=== PATIENT | female | born 1985 | race Caucasian/White ===

== ENCOUNTER 2019-10-25 15:36 | Inpatient (IN) | payer MEDICAID ==
[~2019-10-25] VITALS: Ht 157.5 cm; Wt 58.5 kg
[2019-10-25 16:17] VITALS: BP 137/82
[2019-10-25] MEDS ORDERED: LORazepam 2 MG TABLET PO PRN (16:45)
[2019-10-25] MEDS ORDERED: CYANOCOBALAMIN 1,000 MCG/ML VIAL IM ONE (16:45)
[2019-10-25] MEDS ORDERED: HydrOXYzine PAMOATE 50 MG CAPSULE PO PRN (16:45)
[2019-10-25] MEDS ORDERED: GuaiFENesin/D-METHORPHAN [SUGAR-FREE] 200-20MG/10 ML SYRUP UDCUP PO PRN (16:45)
[2019-10-25] MEDS ORDERED: MAGNESIUM HYDROXIDE SUSPENSION 30 ML UDCUP PO PRN (16:45)
[2019-10-25] MEDS ORDERED: LOPERAMIDE HCL 2 MG CAPSULE PO PRN (16:45)
[2019-10-25] MEDS ORDERED: OLANZapine 5 MG RAPDIS TABLET PO PRN (16:45)
[2019-10-25] MEDS ORDERED: TUBERCULIN, PURIFIED PROTEIN DERIVATIVE 5 TU/0.1 ML SYRINGE ID ONE (16:45)
[2019-10-25] MEDS ORDERED: ACETAMINOPHEN 325 MG TABLET PO PRN (16:45)
[2019-10-25] MEDS ORDERED: MAG HYDROX/AL HYDROX/SIMETH ES 30 ML SUSPENSION UDCUP PO PRN (16:45)
[2019-10-25 18:15] VITALS: BP 128/84
[2019-10-25 19:15] VITALS: BP 124/78
[2019-10-25 19:31] VITALS: BP 124/84
[2019-10-25 20:15] VITALS: BP 121/72
[2019-10-25] MEDS: THIAMINE HCL 100 MG TABLET PO SCH (21:04)
[2019-10-25] MEDS: GABAPENTIN 300 MG CAPSULE PO SCH (21:13)
[2019-10-25 21:15] VITALS: BP 132/69
[2019-10-25] MEDS: ZOLPIDEM TARTRATE 10 MG TABLET PO PRN (22:03)
[2019-10-26] VITALS (8 sets, daily range): BP systolic 105–133; BP diastolic 65–87
[2019-10-26] MEDS ORDERED: LORazepam 2 MG TABLET PO PRN (07:00)
[2019-10-26 08:39] LABS: APPEARANCE,URINE CLEAR (CLEAR); BILIRUBIN,URINE NEGATIVE (NEGATIVE); GLUCOSE, URINE (UA) NEGATIVE (NEGATIVE); KETONES,URINE NEGATIVE (NEGATIVE); LEUKOCYTE ESTERASE ,URINE NEGATIVE (NEGATIVE); NITRATE,URINE NEGATIVE (NEGATIVE); OCCULT BLOOD,URINE NEGATIVE (NEGATIVE); PROTEIN,URINE NEGATIVE (NEGATIVE); UROBILINOGEN,URINE 0.2 mg/dL (<=1.0)
[2019-10-26 08:58] LABS: AMPHET/METH SCREEN,URINE POSITIVE (NEGATIVE); BARBITURATE SCREEN, URINE NEGATIVE (NEGATIVE); BENZODIAZEPINES SCREEN,URINE NEGATIVE (NEGATIVE); CANNABINOID SCREEN,URINE NEGATIVE (NEGATIVE); COCAINE SCREEN,URINE NEGATIVE (NEGATIVE); METHADONE SCREEN, URINE NEGATIVE (NEGATIVE); OPIATE SCREEN,URINE NEGATIVE (NEGATIVE)
[2019-10-26 08:59] LABS: PHENCYCLIDINE SCREEN,URINE NEGATIVE (NEGATIVE)
[2019-10-26] MEDS ORDERED: DULoxetine HCL 20 MG CAPSULE PO SCH (09:00)
[2019-10-26] MEDS: GABAPENTIN 300 MG CAPSULE PO SCH ×4 (09:29→20:42)
[2019-10-26] MEDS: NALTREXONE HCL 50 MG TABLET PO SCH (09:29)
[2019-10-26] MEDS: PredniSONE 10 MG TABLET PO SCH (09:30)
[2019-10-26] MEDS: THIAMINE HCL 100 MG TABLET PO SCH ×2 (09:30→16:27)
[2019-10-26] MEDS: LORazepam 2 MG TABLET PO SCH ×4 (09:30→20:42)
[2019-10-26] MEDS: FOLIC ACID 1 MG TABLET PO SCH (09:30)
[2019-10-26] MEDS: MULTIVITAMINS WITH MINERALS, THERAPEUTIC TABLET PO SCH (09:31)
[2019-10-26] MEDS: PROMETHAZINE HCL 25 MG TABLET PO PRN (10:59)
[2019-10-27 05:11] VITALS: BP 100/72
[2019-10-27 08:27] VITALS: BP 104/74
[2019-10-27] MEDS: SERTRALINE HCL 50 MG TABLET PO SCH (08:28)
[2019-10-27] MEDS: THIAMINE HCL 100 MG TABLET PO SCH ×2 (08:29→16:48)
[2019-10-27] MEDS: FOLIC ACID 1 MG TABLET PO SCH (08:29)
[2019-10-27] MEDS: LORazepam 2 MG TABLET PO SCH ×4 (08:29→21:28)
[2019-10-27] MEDS: PredniSONE 10 MG TABLET PO SCH (08:29)
[2019-10-27] MEDS: NALTREXONE HCL 50 MG TABLET PO SCH (08:29)
[2019-10-27] MEDS: MULTIVITAMINS WITH MINERALS, THERAPEUTIC TABLET PO SCH (08:29)
[2019-10-27] MEDS: GABAPENTIN 300 MG CAPSULE PO SCH ×4 (08:29→21:28)
[2019-10-27 08:49] LABS: BASOPHILS % (AUTO) 0.4 % (0.0-2.0); EOSINOPHILS % (AUTO) 0.9 % (1.0-6.0); HEMATOCRIT 39.5 % (36-46); HEMOGLOBIN 13.3 g/dL (12.0-16.0); LYMPHOCYTES # (AUTO) 2.5 K/uL (1.0-4.8); LYMPHOCYTES % (AUTO) 28.6 % (22.0-44.0); MEAN CORPUSCULAR HEMOGLOBIN 31.4 pg (26.0-34.0); MEAN CORPUSCULAR HGB CONC 33.6 G/dL (31.0-37.0); MEAN CORPUSCULAR VOLUME 93 fL (80-100); MONOCYTES # (AUTO) 0.9 K/uL (0.1-1.0); MONOCYTES % (AUTO) 10.2 % (2.0-9.0); NEUTROPHILS # (AUTO) 5.3 K/uL (1.8-7.7); NEUTROPHILS % (AUTO) 59.9 % (40.0-70.0); PLATELET COUNT (AUTO) 393 K/uL (150-450); RED BLOOD CELL COUNT(AUTO) 4.24 MIL/uL (4.00-5.20); RED CELL DISTRIBUTION WIDTH 12.5 % (11.5-14.5)
[2019-10-27 09:22] LABS: ALANINE AMINOTRANSFERASE 39 U/L (12-78); ALBUMIN 3.1 g/dL (3.4-5.0); ALKALINE PHOSPHATASE 66 U/L (46-116); ANION GAP 5 mmol/L (8-16); ASPARTATE AMINOTRANSFERASE 23 U/L (15-37); BILIRUBIN,TOTAL 0.3 mg/dL (0.1-1.0); CALCIUM, TOTAL 8.9 mg/dL (8.8-10.5); CARBON DIOXIDE 29 mmol/L (22-29); CHLORIDE 106 mmol/L (98-107); CHOL/HDL RATIO 2.5 (3.9-5.7); CHOLESTEROL 157 mg/dL (131-200); CREATININE 0.75 mg/dL (0.60-1.30); FREE T4 (FREE THYROXINE) 1.12 ng/dL (0.76-1.46); GLOMERULAR FILTR. RATE CALC > 60 mL/min (>60); GLUCOSE,RANDOM 93 mg/dL (70-110); HCG,QUANTITATIVE < 1 mIU/mL (0-6); HDL CHOLESTEROL 63 mg/dL (40-60); LDL CHOL (CALC.) 80 mg/dL (0-130); POTASSIUM 3.8 mmol/L (3.5-5.1); SODIUM SERUM 140 mmol/L (136-145); THYROID STIMULATING HORMONE 0.08 uIU/mL (0.36-3.74); TOTAL PROTEIN, SERUM 6.9 g/dL (6.4-8.2); TRIGLYCERIDES 72 mg/dL (15-150); UREA NITROGEN, BLOOD 8 mg/dL (7-18)
[2019-10-27 09:32] LABS: HEMOGLOBIN A1C 5.8 % (4.5-6.2)
[2019-10-27 09:59] VITALS: BP 104/74
[2019-10-27 16:00] VITALS: BP 111/62
[2019-10-27 16:09] VITALS: BP 111/62
[2019-10-28 05:18] VITALS: BP 103/72
[2019-10-28] MEDS ORDERED: LORazepam 1 MG TABLET PO PRN (07:00)
[2019-10-28 08:08] VITALS: BP 123/57
[2019-10-28] MEDS: GABAPENTIN 300 MG CAPSULE PO SCH ×2 (08:44→12:08)
[2019-10-28] MEDS: MULTIVITAMINS WITH MINERALS, THERAPEUTIC TABLET PO SCH (08:44)
[2019-10-28] MEDS: SERTRALINE HCL 50 MG TABLET PO SCH (08:44)
[2019-10-28] MEDS: THIAMINE HCL 100 MG TABLET PO SCH ×2 (08:44→16:39)
[2019-10-28] MEDS: FOLIC ACID 1 MG TABLET PO SCH (08:45)
[2019-10-28] MEDS: PredniSONE 10 MG TABLET PO SCH (08:45)
[2019-10-28] MEDS: NALTREXONE HCL 50 MG TABLET PO SCH (08:45)
[2019-10-28] MEDS: LORazepam 1 MG TABLET PO SCH ×4 (08:45→20:33)
[2019-10-28 10:39] VITALS: BP 123/57
[2019-10-28 16:20] VITALS: BP 113/80
[2019-10-28 16:21] VITALS: BP 113/80
[2019-10-28] MEDS: GABAPENTIN 400 MG CAPSULE PO SCH ×2 (16:41→20:33)
[2019-10-28] MEDS ORDERED: LOPERAMIDE HCL 2 MG CAPSULE PO PRN (16:45)
[2019-10-28] MEDS: ZOLPIDEM TARTRATE 10 MG TABLET PO PRN (20:34)
[2019-10-29 05:01] VITALS: BP 105/78
[2019-10-29] MEDS ORDERED: LORazepam 1 MG TABLET PO PRN (07:00)
[2019-10-29] MEDS: FOLIC ACID 1 MG TABLET PO SCH (08:17)
[2019-10-29] MEDS: NALTREXONE HCL 50 MG TABLET PO SCH (08:17)
[2019-10-29] MEDS: PredniSONE 10 MG TABLET PO SCH (08:17)
[2019-10-29] MEDS: GABAPENTIN 400 MG CAPSULE PO SCH ×4 (08:17→20:17)
[2019-10-29] MEDS: THIAMINE HCL 100 MG TABLET PO SCH ×2 (08:18→16:18)
[2019-10-29] MEDS: MULTIVITAMINS WITH MINERALS, THERAPEUTIC TABLET PO SCH (08:18)
[2019-10-29] MEDS ORDERED: SERTRALINE HCL 100 MG TABLET PO SCH (09:00)
[2019-10-29] MEDS ORDERED: GABA-533 PO (11:44)
[2019-10-29] MEDS ORDERED: SERT100T12 PO (11:44)
[2019-10-29] MEDS ORDERED: NALT50TA6 PO (11:44)
[2019-10-29] MEDS ORDERED: PRED5 PO (11:59)
[2019-10-29] MEDS: PROMETHAZINE HCL 25 MG TABLET PO PRN (14:21)
== END 2019-10-29 19:30 | disposition home or self-care (01) | DRG 751 ==
LOC: B3A 18:50
PROVIDERS: ADMIT Psychiatry & Neurology Psychiatry; ATTEND Psychiatry & Neurology Psychiatry
DX: F33.3 Major depressive disorder, recurrent, severe with psychotic symptoms (principal); A69.20 Lyme disease, unspecified; R45.851 Suicidal ideations; F14.90 Cocaine use, unspecified, uncomplicated; F17.210 Nicotine dependence, cigarettes, uncomplicated; M06.9 Rheumatoid arthritis, unspecified; Z56.0 Unemployment, unspecified; Z59.0 Homelessness; Z91.19 Patient's noncompliance with other medical treatment and regimen; R00.2 Palpitations
CPT/HCPCS: 83036; 84439; 84443; 86592; 87081; J3420

== ENCOUNTER 2022-05-30 14:30 | Emergency (ER) | payer MEDICAID, OTHER ==
[~2022-05-30] VITALS: Ht 157.5 cm; Wt 53.6 kg
[~2022-05-30 14:30] MED LIST: GABA-1201 PO; NALT50TA6 PO; PRED5TAB2 PO; SERT-162 PO
[2022-05-30] MEDS ORDERED: ADAL80PE2 SQ (14:44)
[2022-05-30] MEDS ORDERED: implanon ID (14:44)
[2022-05-30] MEDS ORDERED: METH2.5 PO (14:44)
[2022-05-30] MEDS ORDERED: SODIUM CHLORIDE 0.9% 1,000 ML IV ONE (15:00)
[2022-05-30] MEDS ORDERED: ONDANSETRON HCL 4 MG/2 ML VIAL IVP ONE (15:00)
[2022-05-30 15:16] LABS: BASOPHILS % (AUTO) 0.4 % (0.0-2.0); EOSINOPHILS % (AUTO) 0.1 % (1.0-6.0); HEMATOCRIT 39.6 % (36-46); HEMOGLOBIN 13.1 g/dL (12.0-16.0); LYMPHOCYTES # (AUTO) 2.2 K/uL (1.0-4.8); LYMPHOCYTES % (AUTO) 27.2 % (22.0-44.0); MEAN CORPUSCULAR HEMOGLOBIN 28.8 pg (26.0-34.0); MEAN CORPUSCULAR VOLUME 87 fL (80-100); MONOCYTES # (AUTO) 0.6 K/uL (0.1-1.0); MONOCYTES % (AUTO) 7.6 % (2.0-9.0); NEUTROPHILS # (AUTO) 5.3 K/uL (1.8-7.7); NEUTROPHILS % (AUTO) 64.7 % (40.0-70.0); PLATELET COUNT (AUTO) 332 K/uL (150-450); RED BLOOD CELL COUNT(AUTO) 4.53 MIL/uL (4.00-5.20); RED CELL DISTRIBUTION WIDTH 13.8 % (11.5-14.5)
[2022-05-30 15:25] LABS: COVID AG,FIA SOURCE NASAL SWAB
[2022-05-30 15:26] LABS: ANION GAP 10 mmol/L (8-16); CALCIUM, TOTAL 9.6 mg/dL (8.8-10.5); CARBON DIOXIDE 26 mmol/L (22-29); CHLORIDE 102 mmol/L (98-107); CREATININE 0.76 mg/dL (0.60-1.30); GLUCOSE,RANDOM 99 mg/dL (70-110); POTASSIUM 3.7 mmol/L (3.5-5.1); SODIUM SERUM 138 mmol/L (136-145); UREA NITROGEN, BLOOD 11 mg/dL (7-18)
[2022-05-30 15:28] LABS: GLOMERULAR FILTR. RATE CALC > 60 mL/min (>60)
[2022-05-30 15:33] LABS: ALANINE AMINOTRANSFERASE 23 U/L (12-78); ALKALINE PHOSPHATASE 79 U/L (46-116); ASPARTATE AMINOTRANSFERASE 25 U/L (15-37); BILIRUBIN,TOTAL 0.5 mg/dL (0.1-1.0); LIPASE 62 U/L (73-393)
[2022-05-30 18:20] VITALS: BP 124/76
[2022-05-30] MEDS ORDERED: CEPH-558 PO (18:37)
[2022-05-30] MEDS ORDERED: HYDR30CR39 TP (18:37)
== END 2022-05-30 19:21 | disposition home or self-care (01) ==
LOC: EMS 14:32
DX: R10.9 Unspecified abdominal pain (principal); R21 Rash and other nonspecific skin eruption; F14.90 Cocaine use, unspecified, uncomplicated; M06.9 Rheumatoid arthritis, unspecified; Z88.6 Allergy status to analgesic agent; Z88.8 Allergy status to other drugs, medicaments and biological substances; Z20.822 Contact with and (suspected) exposure to COVID-19
CPT/HCPCS: 99284; 96374; 96361; 87426; 80053; 83690; 85025; 85610; 85730; 36415; 93005; J2405

== ENCOUNTER 2024-06-30 20:23 | Inpatient (IN) | payer MEDICAID, OTHER ==
[~2024-06-30] VITALS: Ht 156.2 cm; Wt 56.2 kg
[~2024-06-30 20:23] MED LIST changes: +DOXY75TA14 PO; -GABA-1201 PO; -NALT50TA6 PO; -PRED5TAB2 PO; -SERT-162 PO
[2024-06-30 23:23] LABS: BASOPHILS % (AUTO) 0.3 % (0.0-2.0); EOSINOPHILS % (AUTO) 0.6 % (1.0-6.0); LYMPHOCYTES # (AUTO) 3.3 K/uL (1.0-4.8); LYMPHOCYTES % (AUTO) 31.6 % (22.0-44.0); MEAN CORPUSCULAR HEMOGLOBIN 29.7 pg (26.0-34.0); MEAN CORPUSCULAR HGB CONC 32.6 G/dL (31.0-37.0); MEAN CORPUSCULAR VOLUME 91 fL (80-100); MONOCYTES # (AUTO) 0.7 K/uL (0.1-1.0); MONOCYTES % (AUTO) 6.3 % (2.0-9.0); NEUTROPHILS # (AUTO) 6.4 K/uL (1.8-7.7); NEUTROPHILS % (AUTO) 61.2 % (40.0-70.0); PLATELET COUNT (AUTO) 413 K/uL (150-450); RED BLOOD CELL COUNT(AUTO) 4.39 MIL/uL (4.00-5.20); RED CELL DISTRIBUTION WIDTH 14.4 % (11.5-14.5); WHITE BLOOD COUNT (AUTO) 10.5 K/uL (4.5-11.0)
[2024-06-30 23:33] LABS: ANION GAP 11 mmol/L (8-16); CALCIUM, TOTAL 9.4 mg/dL (8.8-10.5); CARBON DIOXIDE 27 mmol/L (22-29); CHLORIDE 103 mmol/L (98-107); CREATININE 0.82 mg/dL (0.60-1.30); GLOMERULAR FILTR. RATE CALC > 60 mL/min (>60); GLUCOSE,RANDOM 96 mg/dL (70-110); POTASSIUM 3.4 mmol/L (3.5-5.1); SODIUM SERUM 141 mmol/L (136-145); UREA NITROGEN, BLOOD 9 mg/dL (7-18)
[2024-06-30 23:34] LABS: ALCOHOL, BLOOD (SERUM) 111 mg/dL (0-10)
[2024-07-01] MEDS: PERTUSS(ACELL),DIPH,TET/PF 0.5 ML SYRINGE [ADULT] IM. ONE (00:15)
[2024-07-01] MEDS: POTASSIUM CHLORIDE 20 MEQ ER TABLET PO ONE (00:16)
[2024-07-01 01:05] LABS: COVID AG,FIA SOURCE NASAL SWAB
[2024-07-01 01:16] LABS: SARS-COV2 (COVID) ANTIGEN,FIA Negative (Negative)
[2024-07-01 03:45] VITALS: BP 105/65; PULSE 77; RESP 16; RESP 18; TEMP 97.1; O2SAT 97
[2024-07-01 08:37] VITALS: BP 131/81; PULSE 79; RESP 18; TEMP 97.2; O2SAT 100
[2024-07-01] MEDS ORDERED: PETROLATUM,WHITE 28 GM JELLY TP PRN (16:15)
[2024-07-01] MEDS ORDERED: CloNIDine HCL 0.1 MG TABLET PO PRN (16:15)
[2024-07-01] MEDS ORDERED: ALBUTEROL SULFATE HFA 90 MCG/PUFF 8 GM INHALER IH PRN (16:15)
[2024-07-01] MEDS ORDERED: ONDANSETRON 4 MG TABLET PO PRN (16:15)
[2024-07-01] MEDS ORDERED: MAGNESIUM HYDROXIDE SUSPENSION 30 ML UDCUP PO PRN (16:15)
[2024-07-01] MEDS ORDERED: OMEPRAZOLE 20 MG CAPSULE PO PRN (16:15)
[2024-07-01] MEDS ORDERED: LOPERAMIDE HCL 2 MG CAPSULE PO PRN (16:15)
[2024-07-01] MEDS ORDERED: DOCUSATE SODIUM 100 MG CAPSULE PO PRN (16:15)
[2024-07-01] MEDS ORDERED: BENZOCAINE/MENTHOL LOZENGE PO PRN (16:15)
[2024-07-01] MEDS ORDERED: MAG HYDROX/ALUMINUM HYD/SIMETH ES 30 ML SUSPENSION UDCUP PO PRN (16:15)
[2024-07-01] MEDS ORDERED: BACITRACIN 28 GM OINTMENT TP PRN (16:15)
[2024-07-01] MEDS: OLANZapine 10 MG TABLET PO SCH (21:18)
[2024-07-01] MEDS: LORazepam 2 MG TABLET PO PRN (21:19)
[2024-07-01] MEDS: ZOLPIDEM TARTRATE 10 MG TABLET PO PRN (21:19)
[2024-07-01 22:10] VITALS: BP 151/99; PULSE 99; RESP 19; TEMP 97.7; O2SAT 96
[2024-07-02 04:06] LABS: HEPATITIS A ANTIBODY IGM Negative (Negative); HEPATITIS B CORE IGM Negative (Negative); HEPATITIS C AB (EIA) Non Reactive (Non Reactive)
[2024-07-02] MEDS: MULTIVITAMINS WITH MINERALS, THERAPEUTIC TABLET PO SCH (09:00)
[2024-07-02] MEDS: FOLIC ACID 1 MG TABLET PO SCH (09:00)
[2024-07-02] MEDS: THIAMINE 100 MG TABLET PO SCH (09:01)
[2024-07-02 13:58] VITALS: BP 131/66; PULSE 80; RESP 18; TEMP 98.1; O2SAT 96
[2024-07-02] MEDS: HALOPERIDOL 5 MG TABLET PO PRN (21:32)
[2024-07-02 23:03] VITALS: BP 131/86; PULSE 98; RESP 18; TEMP 98.5; O2SAT 97
[2024-07-03 08:57] VITALS: BP 107/60; PULSE 95; RESP 17; TEMP 97.4; O2SAT 97
[2024-07-03 21:37] VITALS: BP 119/73; PULSE 88; RESP 18; TEMP 98.3; O2SAT 98
[2024-07-04 09:37] VITALS: BP 139/94; PULSE 88; RESP 18; TEMP 97.9; O2SAT 98
[2024-07-04 22:33] VITALS: BP 117/70; PULSE 75; RESP 18; TEMP 98.2; O2SAT 97
[2024-07-05 14:36] VITALS: BP 123/70; PULSE 76; RESP 20; TEMP 98.7; O2SAT 97
[2024-07-05 21:01] VITALS: BP 127/73; PULSE 82; RESP 18; TEMP 97.7
[2024-07-06 08:50] VITALS: BP 92/54; PULSE 77; RESP 17; TEMP 97.8; O2SAT 98
[2024-07-06 22:16] VITALS: BP 121/76; PULSE 82; RESP 18; TEMP 98.1; O2SAT 98
[2024-07-07 11:52] VITALS: BP 96/66; PULSE 72; RESP 16; TEMP 96.3; O2SAT 97
[2024-07-07 22:51] VITALS: BP 99/60; PULSE 85; RESP 18; TEMP 98; O2SAT 98
[2024-07-08 10:13] VITALS: BP 98/52; PULSE 80; RESP 19; TEMP 98; O2SAT 98
[2024-07-08 14:22] VITALS: BP 117/65; PULSE 89; RESP 20; O2SAT 98
[2024-07-08 17:19] LABS: APPEARANCE,URINE CLEAR (CLEAR); BILIRUBIN,URINE NEGATIVE (NEGATIVE); COLOR,URINE LIGHT YELLOW (YELLOW); GLUCOSE, URINE (UA) NEGATIVE (NEGATIVE); KETONES,URINE NEGATIVE (NEGATIVE); LEUKOCYTE ESTERASE ,URINE NEGATIVE (NEGATIVE); NITRATE,URINE NEGATIVE (NEGATIVE); OCCULT BLOOD,URINE NEGATIVE (NEGATIVE); PH,URINE 6.5 (5.0-8.0); PH,URINE DRUG SCREEN 6.5 (5.0-8.0); PROTEIN,URINE NEGATIVE (NEGATIVE); SPECIFIC GRAVITIY, URINE 1.019 (1.003-1.030); UROBILINOGEN,URINE <=1.0 mg/dL (<=1.0)
[2024-07-08 17:31] LABS: ALCOHOL, URINE DRUG SCREEN NEGATIVE (NEGATIVE); AMPHET/METH SCREEN,URINE NEGATIVE (NEGATIVE); BARBITURATE SCREEN, URINE NEGATIVE (NEGATIVE); BENZODIAZEPINES SCREEN,URINE NEGATIVE (NEGATIVE); CANNABINOID SCREEN,URINE NEGATIVE (NEGATIVE); COCAINE SCREEN,URINE NEGATIVE (NEGATIVE); METHADONE SCREEN, URINE NEGATIVE (NEGATIVE); OPIATE SCREEN,URINE NEGATIVE (NEGATIVE); PHENCYCLIDINE SCREEN,URINE NEGATIVE (NEGATIVE)
[2024-07-08 21:31] VITALS: BP 118/73; PULSE 94; RESP 18; TEMP 97.7; O2SAT 96
[2024-07-09 20:40] VITALS: BP 128/79; PULSE 87; RESP 18; TEMP 97.7; O2SAT 98
[2024-07-10 08:56] VITALS: BP 110/65; PULSE 64; RESP 16; O2SAT 99
[2024-07-10] MEDS: ACETAMINOPHEN 325 MG TABLET PO PRN (16:10)
[2024-07-10 16:11] VITALS: BP 115/69; PULSE 69; RESP 18
[2024-07-10 22:32] VITALS: BP 116/74; PULSE 78; RESP 18; TEMP 97.9; O2SAT 98
[2024-07-11 09:51] VITALS: BP 94/61; PULSE 99; RESP 14; TEMP 98.1; O2SAT 100
[2024-07-11 20:55] VITALS: BP 124/85; PULSE 78; RESP 18; TEMP 98.3; O2SAT 100
[2024-07-12 10:25] VITALS: BP 103/61; PULSE 80; RESP 18; TEMP 97.3; O2SAT 99
[2024-07-12 12:56] VITALS: BP 106/61; PULSE 79; RESP 18; TEMP 97
[2024-07-12 13:56] VITALS: BP 122/69; PULSE 63; RESP 17; TEMP 97.6; O2SAT 99
[2024-07-12 14:27] LABS: COVID AG,FIA SOURCE NASAL SWAB
[2024-07-12 14:47] LABS: SARS-COV2 (COVID) ANTIGEN,FIA Negative (Negative)
[2024-07-12 17:11] VITALS: BP 116/61; PULSE 91; RESP 19
[2024-07-12 20:28] VITALS: BP 103/75; PULSE 82; RESP 18; TEMP 97.7; O2SAT 100
[2024-07-13 08:30] VITALS: BP 102/66; PULSE 85; RESP 16; TEMP 97.4; O2SAT 95
[2024-07-13 12:37] VITALS: BP 109/70; PULSE 88; RESP 18; TEMP 97.6; O2SAT 96
[2024-07-13 20:00] VITALS: BP 123/73; PULSE 91; RESP 19; TEMP 97.1; O2SAT 99
[2024-07-14 08:58] VITALS: BP 106/62; PULSE 79; RESP 18; TEMP 98.1; O2SAT 98
[2024-07-14 11:34] VITALS: BP 114/75; PULSE 88; RESP 18; TEMP 97.8; O2SAT 99
[2024-07-14 16:03] VITALS: BP 108/62; PULSE 76; RESP 17; TEMP 97.6; O2SAT 99
[2024-07-14 22:24] VITALS: BP 124/80; PULSE 70; RESP 18; TEMP 97.7; O2SAT 98
[2024-07-15] MEDS: PredniSONE 10 MG TABLET PO SCH (08:17)
[2024-07-15 08:50] VITALS: BP 113/65; PULSE 69; RESP 18; TEMP 97.6; O2SAT 99
[2024-07-15 23:20] VITALS: BP 110/77; PULSE 89; RESP 18; TEMP 98.7; O2SAT 97
[2024-07-16 10:08] VITALS: BP 98/57; PULSE 82; RESP 19; TEMP 97.7; O2SAT 96
[2024-07-16] MEDS ORDERED: OLAN10TA74 PO (15:53)
[2024-07-16] MEDS ORDERED: MULT-1303 PO (17:31)
[2024-07-16] MEDS ORDERED: PRED-729 PO (17:31)
[2024-07-16] MEDS ORDERED: THIA100T80 PO (17:31)
[2024-07-16] MEDS ORDERED: FOLI-130 PO (17:31)
== END 2024-07-16 19:08 | disposition home or self-care (01) | DRG 750 ==
LOC: EMS 20:23 → B3A 07-01 03:43 → 3EI 07-01 03:44
PROVIDERS: ADMIT Psychiatry & Neurology Psychiatry; ATTEND Psychiatry & Neurology Psychiatry
DX: F25.9 Schizoaffective disorder, unspecified (principal); F22 Delusional disorders; R45.851 Suicidal ideations; F33.2 Major depressive disorder, recurrent severe without psychotic features; E87.6 Hypokalemia; F10.229 Alcohol dependence with intoxication, unspecified; F15.10 Other stimulant abuse, uncomplicated; Z20.822 Contact with and (suspected) exposure to COVID-19; F41.9 Anxiety disorder, unspecified; G47.00 Insomnia, unspecified; K59.00 Constipation, unspecified; K21.9 Gastro-esophageal reflux disease without esophagitis; F19.10 Other psychoactive substance abuse, uncomplicated; Z87.891 Personal history of nicotine dependence
CPT/HCPCS: 80048; 80074; 80307; 81003; 84132; 84703; 85025; 90715; 99285; G0480

== ENCOUNTER 2025-07-17 23:30 | Emergency (ER) | payer MEDICAID, OTHER ==
[~2025-07-17] VITALS: Ht 157.5 cm; Wt 54.5 kg
[~2025-07-17 23:30] MED LIST changes: -DOXY75TA14 PO; +FOLI-130 PO; +MULT-1303 PO; +OLAN10TA74 PO; +PRED-729 PO; +THIA100T80 PO
[2025-07-17 23:42] VITALS: BP 161/96; PULSE 86; RESP 18; TEMP 98.4; O2SAT 98
[2025-07-18 00:50] LABS: PLATELET COUNT (AUTO) 387 K/uL (150-450); RED BLOOD CELL COUNT(AUTO) 4.43 MIL/uL (4.00-5.20); RED CELL DISTRIBUTION WIDTH 14.1 % (11.5-14.5); WHITE BLOOD COUNT (AUTO) 15.4 K/uL (4.5-11.0)
[2025-07-18 01:11] LABS: CALCIUM, TOTAL 8.9 mg/dL (8.8-10.5); CREATININE 0.42 mg/dL (0.60-1.30); GLOMERULAR FILTR. RATE CALC > 60 mL/min (>60); GLUCOSE,RANDOM 107 mg/dL (70-110); SODIUM SERUM 139 mmol/L (136-145); UREA NITROGEN, BLOOD 8 mg/dL (7-18)
[2025-07-18] MEDS ORDERED: ZOLPIDEM TARTRATE 10 MG TABLET PO PRN (03:15)
[2025-07-18] MEDS: MINERAL OIL/PETROLATUM,WHITE PF 3.5 GM OPHTHALMIC OINTMENT OU ONE (04:55)
[2025-07-18 09:54] LABS: APPEARANCE,URINE CLEAR (CLEAR); GLUCOSE, URINE (UA) NEGATIVE (NEGATIVE); LEUKOCYTE ESTERASE ,URINE NEGATIVE (NEGATIVE); NITRATE,URINE NEGATIVE (NEGATIVE); OCCULT BLOOD,URINE SMALL (NEGATIVE); PH,URINE DRUG SCREEN 6.0 (5.0-8.0); SPECIFIC GRAVITIY, URINE 1.010 (1.003-1.030)
[2025-07-18 09:58] LABS: COVID AG,FIA SOURCE NASAL SWAB
[2025-07-18 10:01] LABS: AMPHET/METH SCREEN,URINE POSITIVE (NEGATIVE); BARBITURATE SCREEN, URINE NEGATIVE (NEGATIVE); CANNABINOID SCREEN,URINE NEGATIVE (NEGATIVE); COCAINE SCREEN,URINE NEGATIVE (NEGATIVE); METHADONE SCREEN, URINE NEGATIVE (NEGATIVE)
[2025-07-18 10:09] LABS: ALCOHOL, URINE DRUG SCREEN NEGATIVE (NEGATIVE)
[2025-07-18 10:21] LABS: SQUAMOUS EPITHELIAL CELL,UR Rare /LPF (None Seen)
[2025-07-18 10:30] LABS: SARS-COV2 (COVID) ANTIGEN,FIA Negative (Negative)
== END 2025-07-18 10:41 | disposition left against medical advice (07) ==
LOC: EMS 23:32
DX: O26.892 Other specified pregnancy related conditions, second trimester (principal); E03.9 Hypothyroidism, unspecified; E11.9 Type 2 diabetes mellitus without complications; F15.10 Other stimulant abuse, uncomplicated; F20.9 Schizophrenia, unspecified; F31.9 Bipolar disorder, unspecified; F17.210 Nicotine dependence, cigarettes, uncomplicated; F10.90 Alcohol use, unspecified, uncomplicated; F14.90 Cocaine use, unspecified, uncomplicated; Z98.890 Other specified postprocedural states; N89.8 Other specified noninflammatory disorders of vagina; Z20.822 Contact with and (suspected) exposure to COVID-19; Z79.52 Long term (current) use of systemic steroids; Z88.6 Allergy status to analgesic agent; Z3A.16 16 weeks gestation of pregnancy; Y90.9 Presence of alcohol in blood, level not specified
CPT/HCPCS: 76801; 80048; 80307; 81001; 82962; 84702; 84703; 85025; 86850; 86900; 86901; 99284